=== PATIENT | female | born 1990 | race Caucasian/White ===

== ENCOUNTER 2016-10-23 11:42 | Inpatient (IN) | payer OTHER ==
[~2016-10-23] VITALS: Ht 167.6 cm; Wt 123.4 kg
[2016-10-23 11:40] VITALS: BP 139/108
[~2016-10-23 11:42] MED LIST: DCS100C PO; HYDR-3720 PO; Ibuprofen PO
[2016-10-23] MEDS ORDERED: LACTATED RINGERS 1,000 ML IV PRN (11:49)
[2016-10-23 11:50] VITALS: BP 152/92
[2016-10-23] MEDS ORDERED: D5 LR IV SOLUTION 1,000 ML IV SCH ×2 (11:50→20:00)
[2016-10-23] MEDS ORDERED: fentaNYL INJECTION 100 MCG/2 ML AMP ONE (11:52)
[2016-10-23] MEDS ORDERED: OXYTOCIN/NORMAL SALINE 1,000 ML IV ONE (11:52)
[2016-10-23] MEDS ORDERED: LACTATED RINGERS 2,000 ML IV ONE (11:55)
[2016-10-23 11:56] LABS: BASOPHILS % (AUTO) 0 % (0-10); EOSINOPHILS # (AUTO) 0.1 10^3/uL (0.0-0.3); EOSINOPHILS % (AUTO) 1 % (0-10); LYMPHOCYTES # (AUTO) 1.8 X 10^3 (1.0-4.0); LYMPHOCYTES % (AUTO) 22 % (12-44); MEAN CORPUSCULAR HEMOGLOBIN 28 PG (25-34); MEAN CORPUSCULAR HGB CONC 34 G/DL (32-36); MEAN CORPUSCULAR VOLUME 83 FL (80-99); MEAN PLATELET VOLUME 9.6 FL (7.4-10.4); MONOCYTES # (AUTO) 0.6 X 10^3 (0.0-1.0); MONOCYTES % (AUTO) 8 % (0-12); NEUTROPHILS # (AUTO) 5.8 X 10^3 (1.8-7.8); NEUTROPHILS % (AUTO) 70 % (42-75); PLATELET COUNT 294 10^3/uL (130-400); RED BLOOD COUNT 4.07 10^6/uL (4.35-5.85); RED CELL DISTRIBUTION WIDTH 14.8 % (10.0-14.5); WHITE BLOOD COUNT 8.3 10^3/uL (4.3-11.0)
--- NOTE | 2016-10-23 11:57 | History & Physical ---
History and Physical this patient is a 25-year-old G3 to P1 white female with an previous delivery by . She was seen in clinic today bowel blood pressure 135 over 90s blood pressure has escalated since that time 230 240 over 100s. She had 1+ proteinuria. Her bleeding reflexes were quite brisk. Feeling not quite right and having a headache. She denies rupture membranes or bleeding. GBS culture done after 35 weeks gestation was negative. Patient is planning on a repeat C- section on October 27. We sent her to labor and delivery from my clinic for repeat today secondary to her preeclampsia. Allergies are none Medications are vitamins Past medical history, past surgical history, obstetric history, family history, social histories are per the antepartum record HEENT exam is normal patient does look somewhat amara in the complexion Neck is supple no lymphadenopathy no thyromegaly Abdomen is gravid soft nontender nondistended Extreme show clubbing cyanosis. There is no Homans sign. There is fairly notable pretibial pitting edema. Patient DTRs are 3+ to 4 globally OB exam is deferred We'll monitor shows normal heart rate pattern with regular contractions LabWork is pending Assessment and plan 9+ week gestation with previous and with preeclampsia. Plan is to proceed with repeat delivery now. 39 week with previous and now with mild preeclampsia Allergies and Home Medications Allergies Coded Allergies: No Known Drug Allergies (Unverified , 03/19/14) Home Medications 800 MG TAB #60 800 MG PO Q6H Prescribed by: SHARON STEARNS on 03/22/14 0940 Docusate Sodium 100 Mg Capsule #60 1 CAP PO DAILY PRN PRN CONSTIPATION Prescribed by: SHARON STEARNS on 03/22/14 0940 Hydrocodone Bit/Acetaminophen 1 Each Tablet #60 1-2 TAB PO Q3H PRN PRN PAIN Prescribed by: SHARON STEARNS on 03/22/14 0940 SHARON MCCALL MD Oct 23, 2016 11:57 am
[2016-10-23] MEDS ORDERED: CATHETER FLUSH 10 ML SYR IV PRN (12:00)
[2016-10-23] MEDS ORDERED: metroNIDAZOLE 500MG/100ML IVPB 100 ML IV ONE (12:00)
[2016-10-23] MEDS ORDERED: CITRIC ACID/SOB CIT (BICITRA) 30 ML UDC PO ONE (12:00)
[2016-10-23] MEDS: LACTATED RINGERS 1,000 ML IV PRN ×2 (12:00→12:15)
[2016-10-23] MEDS ORDERED: D5 LR IV SOLUTION 1,000 ML IV ONE (12:00)
[2016-10-23] MEDS ORDERED: MEPERIDINE (DEMEROL) INJ 100 MG/ML IM PRN (12:00)
[2016-10-23] MEDS ORDERED: PROMETHAZINE INJ 25 MG/ML (PHENERGAN) AMP IM PRN (12:00)
[2016-10-23] MEDS ORDERED: METOCLOPRAMIDE INJ 10 MG/2 ML (REGLAN) IV ONE (12:00)
[2016-10-23] MEDS ORDERED: FAMOTIDINE 20MG/2ML IV (PEPCID) IV ONE (12:00)
[2016-10-23] MEDS ORDERED: TETANUS,DIPTH,PERTUSS P/F (BOOSTRIX) 0.5 ML VIAL IM ONE (12:00)
[2016-10-23] MEDS ORDERED: ceFAZolin INJECTION 2,000 MG in NS (IVPB) 50 ML IV ONE (12:00)
[2016-10-23] MEDS ORDERED: MEASLES,MUMPS,RUBELLA 1 EA INJ SC ONE (12:00)
[2016-10-23] MEDS ORDERED: PREN1TAB19 PO (12:37)
[2016-10-23] MEDS: OXYTOCIN/NORMAL SALINE 500 ML IV SCH ×4 (12:38→17:48)
[2016-10-23] MEDS ORDERED: ONDANSETRON 4 MG/2 ML (SDV) Z0FRAN ONE (13:03)
[2016-10-23] MEDS ORDERED: METHYLERGONOVINE 0.2 MG/ML (METHERGINE) AMP IM ONE ×2 (14:00→14:45)
[2016-10-23] MEDS ORDERED: FLU TRIvalent (5 YOA+) 2016-17 (AFLURIA) 0.5 ML IM ONE (14:00)
[2016-10-23 14:30] VITALS: BP 138/81
[2016-10-23] MEDS: KETOROLAC 30 MG/ML VIAL IVP SCH ×2 (14:55→20:51)
[2016-10-23] MEDS ORDERED: CARBOPROST (HEMABATE) 250 MCG/ML AMP IM NR (15:30)
[2016-10-23 16:13] VITALS: BP 139/94
[2016-10-23] MEDS: oxyCODONE/APAP 10/325MG (PERCOCET 10) TABLET PO PRN ×2 (17:48→22:56)
[2016-10-23 20:30] VITALS: BP 137/92
[2016-10-23] MEDS: DOCUSATE SODIUM 100 MG (COLACE) CAP PO SCH (20:51)
[2016-10-23 23:29] VITALS: BP 129/83
[2016-10-24] MEDS: KETOROLAC 30 MG/ML VIAL IVP SCH ×2 (03:08→13:53)
[2016-10-24 03:36] VITALS: BP 130/76
[2016-10-24] MEDS: oxyCODONE/APAP 10/325MG (PERCOCET 10) TABLET PO PRN ×3 (05:19→18:03)
--- NOTE | 2016-10-24 07:00 | Progress Note-Standard ---
Standard Progress Note Progress Notes/Assess & Plan Progress/Assessment & Plan patient is without complaint. She is ambulating, voiding, tolerating by mouth well, denies chest pain, denies shortness breath, denies nausea vomiting, denies headache, and has good pain control. vital signs are stable. Patient afebrile. Vital Signs Date Time Temp Pulse Resp B/P Pulse Ox O2 Delivery O2 Flow Rate FiO2 10/24/16 03:36 98.4 109 18 130/76 97 Room Air 10/23/16 23:29 98.1 107 18 129/83 97 Room Air 10/23/16 20:30 97.8 105 18 137/92 98 Room Air 10/23/16 16:13 97.8 94 18 139/94 98 Room Air 10/23/16 14:30 97.5 89 20 138/81 99 Room Air 10/23/16 11:50 111 18 152/92 10/23/16 11:40 98.1 125 18 139/108 I & O 10/24/16 07:00 Intake Total 6300 ml Output Total 1700 ml Balance 4600 ml fundus is firm below the umbilicus and nontender. Extremities show no clubbing cyanosis. There is no Homans sign. There is some pretibial edema that is normal. Assessment and plan is operative day number 1 status post repeat doing well. Plan is for routine convalescence care SHARON MCCALL MD Oct 24, 2016 7:00 am
[2016-10-24] MEDS ORDERED: OXYC-465 PO (07:36)
[2016-10-24] MEDS ORDERED: IBUP-1780 PO (07:36)
[2016-10-24] MEDS ORDERED: DOCU100C37 PO (07:36)
--- NOTE | 2016-10-24 07:38 | Discharge Instructions ---
Discharge Instructions Discharge Medications New, Converted or Re-Newed RX: RX on Chart Patient Instructions Patient Instructions: as directed Return to The Hospital For: as directed Activity & Diet Discharge Diet: No Restrictions Activity as Tolerated: No Orders-Post D/C & Referrals Follow Up Appt: RTC 1 week for incision check. Call to make follow up appt. for patient in 4 weeks. Wound Care: Remove elizabeth, apply benzoin and steri strips. Activity Per routine post instructions. Diet as tolerated Patient may shower or tub bathe as desired. Continue home meds SHARON MCCALL MD Oct 24, 2016 7:37 am
[2016-10-24] MEDS ORDERED: FLU TRIvalent (5 YOA+) 2016-17 (AFLURIA) 0.5 ML IM ONE (08:30)
[2016-10-24] MEDS ORDERED: TETANUS,DIPTH,PERTUSS P/F (BOOSTRIX) 0.5 ML VIAL IM ONE (08:34)
[2016-10-24 09:06] VITALS: BP 141/92
[2016-10-24] MEDS: IBUPROFEN 800 MG (MOTRIN) TAB PO SCH ×3 (09:08→21:32)
[2016-10-24] MEDS: DOCUSATE SODIUM 100 MG (COLACE) CAP PO SCH ×2 (09:08→21:32)
[2016-10-24 12:50] VITALS: BP 125/75
--- NOTE | 2016-10-24 12:57 | OPERATIVE REPORT ---
PROCEDURE PHYSICIAN: SHARON MCCALL DATE OF PROCEDURE: 10/23/2016 DATE OF DICTATION: 10/23/2016 PREOPERATIVE DIAGNOSIS: 39 week with preeclampsia and previous . POSTOPERATIVE DIAGNOSES: 39 week with preeclampsia and previous . OPERATIVE PROCEDURE: Repeat low transverse delivery of a viable male infant with Apgars of 8 and 9 at one and five respectfully. Weight was 9 pounds 8 ounces. Cord blood pH was 7.32. time was 1237. OPERATIVE DESCRIPTION: With the patient in the supine position, under satisfactory spinal anesthesia, she was prepped and draped usual fashion for abdominal surgery. Weiss cath was placed in the urinary bladder. A repeat Pfannenstiel incision made through the skin with scalpel at the site of the patient's previous Pfannenstiel incision. The abdomen was entered in the usual manner. Bladder retractor placed in position and clean scalpel used to make a 4 cm hysterotomy incision transversely across lower uterine segment; that was extended by blunt dissection as well. Clear fluid was released on hysterotomy. A vigorous viable male was delivered via the uterine incision. The infant was bulb suctioned on delivery of the head. A large loop of umbilical cord delivered second then the delivery was completed. The bulb suction again as the cord was clamped and cut and passed to nurse Ayanna pediatric nurse in attendance for delivery. Cord bloods were obtained. The placenta delivered spontaneously Gray. It was normal with a 3 vessel cord. The uterus was exteriorized, interior wiped clean with a wet laparotomy sponge. Uterine incision closed with a running lock suture of 2-0 Vicryl. Hemostasis was complete. The uterus was returned to the abdominal cavity. All blood clot and debris removed from the abdominal cavity. With sponge and needle counts correct and hemostasis assured, the anterior parietal peritoneum and then the rectus muscles were closed with running suture of 2-0 Vicryl. The rectus fascia was closed with 2 sutures of 2-0 Vicryl. Subcutaneous tissues was closed with 2-0 Vicryl and the skin was stapled. Sponge and needle counts were correct at the end of procedure. Estimated blood loss for procedure was around 500 mL. The patient tolerated the procedure well, and was transferred to the recovery in stable condition. The had taken stable to the full term nursery under the care of Ayanna Bailey pediatric nurse in attendance for delivery. Job ID: [id number] Dictated Date: 10/23/2016 12:55:44 Pharmacy Aide Date: 10/24/2016 12:52:19 / micaela
[2016-10-24 20:45] VITALS: BP 138/82
[2016-10-25] MEDS: oxyCODONE/APAP 10/325MG (PERCOCET 10) TABLET PO PRN ×3 (00:02→11:42)
[2016-10-25] MEDS: IBUPROFEN 800 MG (MOTRIN) TAB PO SCH ×2 (03:48→11:42)
[2016-10-25 03:52] VITALS: BP 132/74
--- NOTE | 2016-10-25 07:36 | Progress Note-Standard ---
Standard Progress Note Progress Notes/Assess & Plan Progress/Assessment & Plan patient is without complaint. She is ambulating, voiding, tolerating by mouth well, denies chest pain, denies shortness breath, denies nausea vomiting, denies headache, and has good pain control. vital signs are stable. Patient afebrile. Vital Signs Date Time Temp Pulse Resp B/P Pulse Ox O2 Delivery O2 Flow Rate FiO2 10/24/16 03:36 98.4 109 18 130/76 97 Room Air 10/23/16 23:29 98.1 107 18 129/83 97 Room Air 10/23/16 20:30 97.8 105 18 137/92 98 Room Air 10/23/16 16:13 97.8 94 18 139/94 98 Room Air 10/23/16 14:30 97.5 89 20 138/81 99 Room Air 10/23/16 11:50 111 18 152/92 10/23/16 11:40 98.1 125 18 139/108 I & O 10/24/16 07:00 Intake Total 6300 ml Output Total 1700 ml Balance 4600 ml fundus is firm below the umbilicus and nontender. Extremities show no clubbing cyanosis. There is no Homans sign. There is some pretibial edema that is normal. Assessment and plan is operative day number 1 status post repeat doing well. Plan is for routine convalescence care October 25, 2016 Patient is without complaint. She is ambulating, voiding, tolerating it well, has good pain control, patient is requesting discharge home. Vital Signs Date Time Temp Pulse Resp B/P Pulse Ox O2 Delivery O2 Flow Rate FiO2 10/25/16 03:52 97.9 94 18 132/74 95 Room Air 10/24/16 20:45 98.0 104 18 138/82 97 Room Air 10/24/16 12:50 98.6 106 18 125/75 96 Room Air 10/24/16 09:06 98.2 113 18 141/92 97 Room Air I & O 10/25/16 07:00 Intake Total 1860 ml Output Total 2000 ml Balance -140 ml vital signs are stable. Patient is afebrile. fundus is firm below the umbilicus and nontender.the incision is clean dry and intact. Extremities show no clubbing or cyanosis. There is no Homans sign. assessment and plan postoperative day number 2 status post repeat doing well. Plan is for discharge home with follow-up in clinic. Final Diagnosis 39+ week gestation with repeat SHARON MCCALL MD Oct 25, 2016 7:36 am
[2016-10-25 07:45] VITALS: BP 117/75
[2016-10-25] MEDS: DOCUSATE SODIUM 100 MG (COLACE) CAP PO SCH (08:56)
[2016-10-25 12:08] VITALS: BP 139/79
== END 2016-10-25 15:00 | disposition home or self-care (01) | DRG 766 ==
LOC: LDRP 11:42
PROVIDERS: ADMIT Obstetrics & Gynecology; ATTEND Obstetrics & Gynecology
PROC: 10D00Z1 Extraction of Products of Conception, Low, Open Approach (ICD-10-PCS; principal; 2016-10-23 12:15)
DX: O14.03 Mild to moderate pre-eclampsia, third trimester (principal); O34.211 Maternal care for low transverse scar from previous cesarean delivery; Z3A.39 39 weeks gestation of pregnancy; Z37.0 Single live birth; Z23 Encounter for immunization
CPT/HCPCS: 36415; 85025; 86850; 86900; 86901; 88307; 90715; 94664

== ENCOUNTER 2020-11-15 16:14 | Day surgery (SDC) | payer OTHER ==
[~2020-11-15] VITALS: Ht 172.7 cm; Wt 118.2 kg
[2020-11-15] VITALS (11 sets, daily range): BP systolic 132–168; BP diastolic 84–121
[~2020-11-15 16:14] MED LIST changes: +DOCU100C37 PO; +IBUP-1780 PO; +OXYC-556 PO; +PREN1TAB19 PO
[2020-11-15] MEDS ORDERED: SEVOFLURANE (ULTANE) 15 ML INHAL SOLN ONE (16:43)
[2020-11-15] MEDS ORDERED: LIDOCAINE PF 2% 5 ML (XYLOCAINE) VIAL ONE (16:43)
[2020-11-15] MEDS ORDERED: proPOfol 200 MG/20 ML (DIPRIVAN) VIAL IV ONE (16:43)
[2020-11-15] MEDS ORDERED: ONDANSETRON 4 MG/2 ML (SDV) Z0FRAN ONE (16:43)
[2020-11-15] MEDS ORDERED: fentaNYL INJECTION 100 MCG/2 ML AMP ONE (16:44)
[2020-11-15] MEDS ORDERED: MIDAZOLAM 2 MG/2 ML (VERSED) VIAL ONE (16:44)
[2020-11-15] MEDS ORDERED: LACTATED RINGERS 1,000 ML IV PRN (16:45)
[2020-11-15] MEDS ORDERED: LABETALOL HCL 20 MG/4 ML VIAL ONE (16:59)
[2020-11-15] MEDS ORDERED: LABETALOL HCL 20 MG/4 ML VIAL IV ONE (17:00)
[2020-11-15 17:13] LABS: BASOPHILS % (AUTO) 0 % (0-10); EOSINOPHILS # (AUTO) 0.1 10^3/uL (0.0-0.3); EOSINOPHILS % (AUTO) 1 % (0-10); HEMATOCRIT 35 % (35-52); HEMOGLOBIN 10.9 g/dL (11.5-16.0); LYMPHOCYTES # (AUTO) 1.9 10^3/uL (1.0-4.0); LYMPHOCYTES % (AUTO) 27 % (12-44); MEAN CORPUSCULAR HEMOGLOBIN 26 pg (25-34); MEAN CORPUSCULAR HGB CONC 32 g/dL (32-36); MEAN CORPUSCULAR VOLUME 82 fL (80-99); MEAN PLATELET VOLUME 9.4 fL (9.0-12.2); MONOCYTES # (AUTO) 0.4 10^3/uL (0.0-1.0); MONOCYTES % (AUTO) 6 % (0-12); NEUTROPHILS # (AUTO) 4.4 10^3/uL (1.8-7.8); NEUTROPHILS % (AUTO) 65 % (42-75); PLATELET COUNT 335 10^3/uL (130-400); WHITE BLOOD COUNT 6.8 10^3/uL (4.3-11.0)
[2020-11-15] MEDS ORDERED: ONDANSETRON 4 MG/2 ML (SDV) Z0FRAN IVP PRN ×2 (17:30→18:15)
[2020-11-15] MEDS ORDERED: KETOROLAC 30 MG/ML VIAL IVP ONE (17:30)
[2020-11-15] MEDS ORDERED: D5 LR IV SOLUTION 1,000 ML IV SCH (17:30)
[2020-11-15] MEDS ORDERED: fentaNYL INJECTION 100 MCG/2 ML AMP IVP PRN (17:30)
--- NOTE | 2020-11-15 17:33 | Discharge Inst-Surgical ---
Discharge Inst-Surgical Depart Medication/Instructions New, Converted or Re-Newed RX: Other Consults/Follow Up Patient Instructions: As directed Orders & Referrals Follow Up Appt: Call to make follow up appt. for patient in 2 weeks. Activity: Rest for 24 hours, than as tolerated. Diet: As tolerated shower or tub bathe as desired. No driving for 24 hours, no alcoholic beverages for 24 hours, and nothing per vagina (no tampons, douching, or intercoarse) for 2 weeks. Patient to return to the clinic as soon as possible for: Temperature greater than 101F, Severe Pain, Foul discharge from incision or vagina, Excessive Bleeding (more than a period). Diet Discharge Diet: No Restrictions SHARON MCCALL MD Nov 15, 2020 17:33
--- NOTE | 2020-11-15 17:35 | Progress Note-Pre Operative ---
Pre-Operative Progress Note H&P Reviewed The H&P was reviewed, patient examined and no changes noted. Date Seen by Provider: Nov 15, 2020 Time Seen by Provider: 17:35 Date H&P Reviewed: Nov 15, 2020 Time H&P Reviewed: 17:35 Pre-Operative Diagnosis: Missed AB with excessive bleeding SHARON MCCALL MD Nov 15, 2020 17:35
--- NOTE | 2020-11-15 17:35 | Discharge Inst-Surgical ---
Discharge Inst-Surgical Consults/Follow Up Orders & Referrals May use own [id number] Motrin/ibuprofen/Advil Up to 800 mg p.o. every 6 hours as needed cramps or pain missed AB with excessive bleeding SHARON MCCALL MD Nov 15, 2020 17:35
[2020-11-15] MEDS ORDERED: 0.9% SODIUM CHLORIDE PF INJ 20 ML VIAL ONE (17:36)
[2020-11-15] MEDS ORDERED: ceFAZolin INJECTION 1,000 MG ONE (17:36)
--- NOTE | 2020-11-15 17:36 | Progress Note-Post Operative ---
Post-Operative Progess Note Surgeon (s)/Roster Clerk (s) Surgeon SHARON MCCALL MD Roster Clerk: NONE Pre-Operative Diagnosis Missed AB with excessive bleeding Post-Operative Diagnosis Same with pathology pending Procedure & Operative Findings Date of Procedure 11/15/20 Procedure Performed/Findings D&C for missed AB IN first trimester Anesthesia Type GETA Estimated Blood Loss Estimated blood loss (mL): 100CC Specimens/Packing Specimens Removed Uterine contents/products of conception SHARON MCCALL MD Nov 15, 2020 17:36
[2020-11-15] MEDS ORDERED: ceFAZolin INJECTION 1,000 MG in WATER (STERILE) FOR INJECTION 10 ML IV ONE (18:00)
--- NOTE | 2020-11-15 18:13 | Anesthesia-General Post-Op ---
General Patient Condition Mental Status/LOC: Same as Preop Cardiovascular: Satisfactory Nausea/Vomiting: Absent Respiratory: Satisfactory Pain: Controlled Complications: Absent Post Op Complications Complications None Follow Up Care/Instructions Patient Instructions None needed. Anesthesia/Patient Condition Patient Condition Patient is doing well, no complaints, stable vital signs, no apparent adverse anesthesia problems. No complications reported per nursing. [place] [facility] [place]: Yes SILAS ROJAS CRNA Nov 15, 2020 18:13
[2020-11-15] MEDS ORDERED: HYDROmorphone 2 MG/ML VIAL (DILAUDID) IV ONE (18:15)
--- NOTE | 2020-11-16 00:17 | OPERATIVE REPORT ---
DATE OF SERVICE: 11/15/2020 PREOPERATIVE DIAGNOSIS: First trimester missed AB with excessive bleeding. POSTOPERATIVE DIAGNOSIS: First trimester missed AB with excessive bleeding. OPERATIVE PROCEDURE: D and C for first trimester missed AB. OPERATIVE DESCRIPTION: With the patient in supine position under satisfactory general anesthesia, she was repositioned in dorsal lithotomy position [facility] and prepped and draped in the usual fashion for vaginal surgery. Urinary bladder was drained with a Weiss catheter. A weighted speculum placed in posterior fornix of vagina, cervix exposed and grasped anteriorly with single tooth tenaculum. Uterus was sounded to 12.5 cm with uterine sound. The cervix was then serially dilated with Giuseppe dilators to a #10 Hegar, which required very little dilation as the cervix was already quite relaxed. A #10 curved suction curette was then introduced and the large amount of trophoblastic and decidual appearing tissue, blood clot and debris was evacuated. The uterine cavity was then sharply curettaged in all 4 quadrants to good uterine cry. The suction curette was reintroduced and all blood clot and debris evacuated from the uterus. All of that tissue was sent to pathology labeled as uterine contents/products of conception. The tenaculum was removed from the cervix. There was no significant bleeding from the puncture sites. There was minimal oozing from the cervical os. Sponge and needle counts were correct. Blood loss was around 100 mL. The patient now uneventfully awakened from her general anesthesia and transferred to the recovery room in stable condition with plans for discharge home PAR. Job ID: [id number] DocumentID: [id number] Dictated Date: 11/15/2020 17:56:28 In Tube Conversion Technician Date: 11/16/2020 00:16:26 Dictated By: SHARON MCCALL MD
== END 2020-11-15 20:05 ==
LOC: SDC 16:14 → WS 18:50 → SDC 20:05
PROVIDERS: ATTEND Obstetrics & Gynecology
DX: O02.1 Missed abortion (principal); Z20.822 Contact with and (suspected) exposure to COVID-19
CPT/HCPCS: 59820; 85025; 87081; U0002; 36415; 87635